=== PATIENT | male | born 1960 | race Caucasian/White ===

== ENCOUNTER 2021-09-17 12:49 | Emergency (ER) | payer MEDICARE, OTHER ==
[~2021-09-17 12:49] MED LIST: DICLOFENAC SODI75 MG PO; IBUPROFEN800 MG PO; LEVAQUIN750 MG PO; MEDROL 4MG DOSEP4 MG PO; MELOXICAM15 MG PO; NORCO 5-325 TA1 EACH PO; NORCO 5/3251 EACH PO; ONDANSETRON ODT4 MG SL; ROBAXIN500 MG PO; TAMIFLU 75MG CA75 MG PO; TIZANIDINE HCL4 MG PO; VIBRAMYCIN100 MG PO; VOLTAREN100 GM TOP; knee brace XX
[2021-09-17 13:40] LABS: BILIRUBIN NEGATIVE (NEGATIVE); BLOOD NEGATIVE Ery/uL (NEGATIVE); CLARITY CLEAR (CLEAR); COLOR YELLOW (YELLOW); GLUCOSE (U) NORMAL (NORMAL); LEUKOCYTES NEGATIVE Leu/uL (NEGATIVE); NITRITE NEGATIVE (NEGATIVE); PROTEIN NEGATIVE (NEGATIVE); SPECIFIC GRAVITY 1.025 (1.001-1.030); UROBILINOGEN 0.2 mg/dL (0.2-1.0)
[2021-09-17 14:28] LABS: BASOPHIL 0.7 % (0-2); EOSINOPHIL 1.2 % (0-5); HCT 45.6 % (42.0-52.0); LYMPHOCYTE 30.9 % (15-48); MCH 32.2 pg (25.0-31.0); MCHC 32.9 g/dL (32.0-36.0); MCV 97.9 fL (78.0-100.0); MONOCYTE 4.6 % (0-12); MPV 10.9 fL (6.0-9.5); NEUTROPHIL 62.2 % (41-80); NRBC 0; PLT 293 K/uL (150-400); RBC 4.66 M/uL (4.70-6.00); RDW 13.6 % (11.5-14.0); WBC 11.3 K/uL (4.0-10.5)
[2021-09-17 14:53] LABS: ALBUMIN 3.6 g/dL (3.4-5.0); BILIRUBIN - TOTAL 0.3 mg/dL (0.2-1.0); BUN/CREAT RATIO (CALC) 15.2 RATIO; CREATININE 0.92 mg/dL (0.67-1.17); GLOBULIN (CALCULATION) 3.5 g/dL; POTASSIUM 3.9 mmol/L (3.5-5.1); TOTAL PROTEIN 7.1 g/dL (6.4-8.2)
== END 2021-09-17 16:48 | disposition home or self-care (01) ==
LOC: FER 12:49
PROVIDERS: Physician Assistant
DX: R10.30 Lower abdominal pain, unspecified (principal); R19.09 Other intra-abdominal and pelvic swelling, mass and lump; J45.909 Unspecified asthma, uncomplicated; F17.210 Nicotine dependence, cigarettes, uncomplicated; Z88.2 Allergy status to sulfonamides; Z28.310 Unvaccinated for COVID-19
CPT/HCPCS: 36415; 80053; 81003; 83690; 85025; J1885